=== PATIENT | female | born 1975 | race Two or more races ===

== ENCOUNTER 2025-01-31 10:00 | Inpatient (IN) | payer OTHER ==
[~2025-01-31] VITALS: Ht 152.4 cm; Wt 62.6 kg
[2025-01-31 11:51] VITALS: BP 143/86
[2025-01-31 11:54] VITALS: BP 109/56
[2025-01-31 12:06] LABS: BASO % 0.5 % (0.1-1.2); EOS # 0.12 (0.04-0.54); EOS % 2.1 % (0.7-7.0); LYMPH # 1.91 (1.18-3.74); LYMPH % 33.7 % (19.3-53.1); MEAN PLATELET VOLUME 10.30 fl (9.4-12.4); MONO # 0.33 (0.24-0.82); MONO % 5.8 % (4.7-12.5); NEUT # 3.26 (1.56-6.13); NEUT % 57.7 % (34.0-71.1); RED CELL DISTRIBUTION WIDTH 11.9 % (11.6-14.4)
[2025-01-31 12:29] LABS: INR 1.0
[2025-01-31 13:01] LABS: ALT/SGPT 36.0 U/L (12-78); AST/SGOT 15.0 U/L (15-37); BILIRUBIN TOTAL 0.45 mg/dL (0.3-1.2); BUN CREA RATIO 28.0 (7.0-25.0); CREATININE SERUM 0.46 mg/dL (0.55-1.02); GFR 143.79; GLOBULINA 3.4 G/DL (2.4-3.5); GLUCOSE FASTING 85.0 mg/dL (65-100); OSMOLALITY SERUM 279.0 MOSM/KG (275-295)
[2025-01-31 13:26] LABS: RH POSITIVE
[2025-02-04] MEDS ORDERED: CEFAZOLIN SODIUM 1,000 MG VIAL IV ONE (16:45)
[2025-02-04] MEDS ORDERED: POVIDONE-IODINE 118 ML BOTT TOP ONE (16:45)
[2025-02-04] MEDS ORDERED: METRONIDAZOLE/SODIUM CHLORIDE 500 MG/100 ML PIGGYBACK IV ONE (16:45)
[2025-02-04] MEDS ORDERED: BUPIVACAINE HCL 30 ML VIAL IJ ONE (20:15)
[2025-02-04] MEDS ORDERED: SUGAMMADEX SODIUM 200 MG/2 ML VIAL IV ONE (20:15)
[2025-02-04] MEDS ORDERED: KETOROLAC TROMETHAMINE 30 MG VIAL IV SCH (20:17)
[2025-02-04] MEDS ORDERED: ACETAMINOPHEN 500 MG GEL..CAP PO SCH (20:17)
[2025-02-04] MEDS ORDERED: GABAPENTIN 300 MG CAPSULE PO SCH (20:18)
[2025-02-04] MEDS ORDERED: RINGERS SOLUTION,LACTATED 1,000 ML IV SCH (20:30)
[2025-02-04] MEDS ORDERED: MORPHINE SULFATE 4 MG/ML VIAL IV ONE (20:35)
[2025-02-04 22:26] VITALS: BP 143/86
[2025-02-05 00:03] VITALS: BP 142/83
[2025-02-05 06:44] LABS: BASO % 0.2 % (0.1-1.2); EOS # 0.04 (0.04-0.54); EOS % 0.5 % (0.7-7.0); LYMPH # 1.16 (1.18-3.74); LYMPH % 13.7 % (19.3-53.1); MEAN PLATELET VOLUME 10.20 fl (9.4-12.4); MONO # 0.48 (0.24-0.82); MONO % 5.7 % (4.7-12.5); NEUT # 6.75 (1.56-6.13); NEUT % 79.5 % (34.0-71.1); RED CELL DISTRIBUTION WIDTH 12.1 % (11.6-14.4)
[2025-02-05 08:00] VITALS: BP 116/73
[2025-02-05 12:56] VITALS: BP 150/78; BP 150/84; O2SAT 98
[2025-02-05] MEDS ORDERED: SIMETHICONE 125 MG CAPSULE PO SCH (13:00)
[2025-02-05] MEDS ORDERED: FAMOTIDINE/PF 20 MG/2 ML VIAL IV NR (13:30)
[2025-02-05 16:06] VITALS: BP 125/80
[2025-02-05] MEDS ORDERED: CYCLOBENZAPRINE HCL 5 MG TABLET PO PRN (16:15)
[2025-02-06 02:15] VITALS: BP 134/75
[2025-02-06 06:03] VITALS: BP 118/75
[2025-02-06 06:22] LABS: BASO % 0.3 % (0.1-1.2); EOS # 0.18 (0.04-0.54); EOS % 2.7 % (0.7-7.0); LYMPH # 1.51 (1.18-3.74); LYMPH % 22.4 % (19.3-53.1); MEAN PLATELET VOLUME 10.10 fl (9.4-12.4); MONO # 0.39 (0.24-0.82); MONO % 5.8 % (4.7-12.5); NEUT # 4.62 (1.56-6.13); NEUT % 68.7 % (34.0-71.1); RED CELL DISTRIBUTION WIDTH 12.2 % (11.6-14.4)
[2025-02-06 06:55] LABS: ALT/SGPT 55.0 U/L (12-78); AST/SGOT 25.0 U/L (15-37); BILIRUBIN TOTAL 0.33 mg/dL (0.3-1.2); BUN CREA RATIO 14.0 (7.0-25.0); CREATININE SERUM 0.36 mg/dL (0.55-1.02); GFR 190.8; GLOBULINA 2.8 G/DL (2.4-3.5); GLUCOSE FASTING 107.0 mg/dL (65-100); OSMOLALITY SERUM 285.0 MOSM/KG (275-295)
[2025-02-06 08:00] VITALS: BP 136/79
== END 2025-02-06 10:41 | disposition home or self-care (01) | DRG 743 ==
LOC: SURG 02-04 07:00 → O/R 02-04 12:38 → OB/GYN 02-04 12:38
PROVIDERS: ADMIT Student in an Organized Health Care Education/Training Program; ATTEND Student in an Organized Health Care Education/Training Program
PROC: 0UB74ZZ Excision of Bilateral Fallopian Tubes, Percutaneous Endoscopic Approach (ICD-10-PCS; 2025-02-04)
PROC: 0UPD4HZ Removal of Contraceptive Device from Uterus and Cervix, Percutaneous Endoscopic Approach (ICD-10-PCS; 2025-02-04)
PROC: 0UDB8ZZ Extraction of Endometrium, Via Natural or Artificial Opening Endoscopic (ICD-10-PCS; 2025-02-04)
PROC: 0TJB8ZZ Inspection of Bladder, Via Natural or Artificial Opening Endoscopic (ICD-10-PCS; 2025-02-04)
PROC: 0UT94ZZ Resection of Uterus, Percutaneous Endoscopic Approach (ICD-10-PCS; principal; 2025-02-04 07:00)
DX: D25.1 Intramural leiomyoma of uterus (principal); N84.1 Polyp of cervix uteri; N93.9 Abnormal uterine and vaginal bleeding, unspecified; Z90.710 Acquired absence of both cervix and uterus; Z30.432 Encounter for removal of intrauterine contraceptive device
CPT/HCPCS: 58573; 52000; 58562; S2900